=== PATIENT | female | born 1935 | race Caucasian/White ===

== ENCOUNTER 2021-11-01 18:19 | Emergency (ER) | payer OTHER, SELFPAY ==
[2021-11-01 18:22] VITALS: BP 192/96; PULSE 74; RESP 16; TEMP 36.9; O2SAT 97; BMI 20.9
--- NOTE | 2021-11-01 18:31 | DI.RAD.S_ITS ---
PROCEDURE: XR RIBS RT MIN 3V W CXR 1V INDICATIONS: fall with pain to R ribs TECHNIQUE: 2 views of the right ribs were acquired, along with a single view chest. COMPARISON: None. FINDINGS: Surgical changes and devices: Surgical clips in right upper quadrant compatible with prior cholecystectomy. . Bones and chest wall: No fractures or dislocations. No suspicious bony lesions. Overlying soft tissues appear unremarkable. Lungs and pleura: No pleural effusions or pneumothorax. Lungs appear clear. Mediastinum: Mediastinal contours appear normal. Heart size is normal. IMPRESSION: Chest without acute cardiopulmonary abnormalities. No acute/displaced rib fractures identified. Dictated by: Anil Pillai M.D. on 11/01/2021 at 18:47 Approved by: Anil Pillai M.D. on 11/01/2021 at 18:48
[2021-11-01 19:12] VITALS: BP 170/81; PULSE 77; O2SAT 96
[2021-11-01 19:14] VITALS: O2SAT 96
[2021-11-01 19:30] VITALS: BP 153/81
--- NOTE | 2021-11-01 19:40 | ED.FALL ---
HPI - Fall General Chief Complaint: Fall Stated Complaint: Fall, Right Rib and Neck Pain Time Seen by Provider: 11/01/21 18:47 History of Present Illness HPI Narrative: 86-year-old woman exceptionally healthy and Advair daily as her only medication and is an active practitioner of tight she was hiking on a trail and stumbled over a root falling onto her right lateral lower ribs with some tenderness. She is concerned that there may be a rib fracture. She was able to get off the ground and hike back to her car without difficulty. She is complaining of some minor muscle stiffness on the left side of her neck and into the left trapezius but no other injuries. She notes no abrasions or contusions. Review of Systems Review of Systems Narrative: Pertinent positive and negative findings as per HPI Remainder of review of systems is otherwise unremarkable for Constitutional: Fevers, chills, weakness ENT: No sore throat, neck pain, ear pain CV: Chest pain, palpitations, Respiratory: Cough, wheeze, dyspnea GI: Nausea, vomiting, diarrhea, : Dysuria, hematuria, Patient History Medical History (Updated 11/01/21 @ 20:03 by Eunice Mendiola MD) Asthma Exam Initial Vital Signs Initial Vital Signs: Vital Signs Temperature 98.4 F 11/01/21 18:22 Pulse Rate 74 11/01/21 18:22 Respiratory Rate 16 11/01/21 18:22 Blood Pressure 192/96 H 11/01/21 18:22 Pulse Oximetry 97 11/01/21 18:22 Oxygen Delivery Method 11/01/21 18:22 General: Healthy appearing, in no acute distress. Able to give a complete and coherent history. Well-nourished well-developed HEENT: Moist mucous membranes, normal sclera with reactive pupils, atraumatic Neck: No midline point tenderness,, supple, mild tenderness the left paraspinous and into the upper trapezius muscles Respiratory: Lungs are clear to auscultation, no wheezing no rales no rhonchi. Full and symmetrical air movement Cardiac: Regular rate and rhythm no murmurs no bruits Chest: Tenderness ribs 11 and 12 mid axillary line right side with no subcutaneous air, obvious contusion or hematoma. Abdomen: Soft, nontender, good bowel tones, no flank pain Spine and pelvis: No tenderness along the thoracic or lumbar spine or with compression of the pelvic ring. Skin: Warm and dry, no rashes Neurologic: Grossly neurologically intact with no obvious asymmetries or abnormalities Extremities: No trauma, no hematoma abrasions or contusions to the right hip or knee, well perfused Psych: Cooperative, appropriate insight and affect Course Orders Ordered: ED Orders 11/01/21 18:31 XR ribs RT min 3V w CXR1V Stat Vital Signs Vital signs: Vital Signs - 8 hr 11/01/21 18:22 11/01/21 19:12 11/01/21 19:12 Temperature 98.4 F Pulse Rate 74 77 Respiratory Rate 16 Blood Pressure 192/96 H 170/81 H Pulse Oximetry 97 96 Oxygen Delivery Method Room Air MDM - Fall Imaging Data Chest x-ray: Radiologist's Impression: PROCEDURE:? XR RIBS RT MIN 3V W CXR 1V ? INDICATIONS:? fall with pain to R ribs ? TECHNIQUE:? 2 views of the right ribs were acquired, along with a single view chest.? ? COMPARISON:? None. ? FINDINGS:? ? Surgical changes and devices:? Surgical clips in right upper quadrant compatible with prior cholecystectomy. .? ? Bones and chest wall:? No fractures or dislocations.? No suspicious bony lesions.? Overlying soft tissues appear unremarkable.? ? Lungs and pleura:? No pleural effusions or pneumothorax.? Lungs appear clear.? ? Mediastinum:? Mediastinal contours appear normal.? Heart size is normal.? ? IMPRESSION:? Chest without acute cardiopulmonary abnormalities.? No acute/displaced rib fractures identified. ? ? Dictated by: Anil Pillai M.D. on 11/01/2021 at 18:47 ? ? [facility] Narrative Medical decision making narrative: Healthy 86-year-old woman with mechanical fall over root landing on the right ribs with no evidence of significant contusion or rib fracture. She has no underlying hemopneumothorax. She is able to speak in full sentences and pain is minimal. She notes that she typically adheres to Tylenol, arnica, Voltaren, acupuncture, physical therapy and home me opted the to keep herself healthy. At this time she declines additional medications. There does not appear to be any other complicating injuries and she is safe for home discharge. Discharge Plan Departure Patient Disposition: Home Clinical Impression: Contusion of rib on right side Qualifiers: Encounter type: initial encounter Qualified Code(s): S20.211A - Contusion of right front wall of thorax, initial encounter Instructions: DI for Rib Contusion Activity Restrictions/Additional Instructions: Thank you for coming in today Your chest x-ray is very reassuring. It does not look like you broke ribs, you do not have a collapsed lung, there is no bleeding into or around your ribs or lungs. I would expect to find increasing pain over the next 12-48 hours. Using Tylenol, arnica, Voltaren, ice or heat as it seems to work best will all be helpful as your body works through your injury. I am pleased that you did not significantly injur yourself on your higke today. I hope you heal quickly Referrals: Adam Ramos MD [Primary Care Provider] -
== END 2021-11-01 20:10 | disposition home or self-care (01) ==
PROVIDERS: Emergency Provider Emergency Medicine; PCP Internal Medicine Geriatric Medicine
DX: S20.211A Contusion of right front wall of thorax, initial encounter (principal); W19.XXXA Unspecified fall, initial encounter
CPT/HCPCS: 71101; 99283